=== PATIENT | female | born 1950 | race Caucasian/White ===

== ENCOUNTER 2017-12-05 19:12 | Emergency (ER) | payer MEDICARE, OTHER ==
[~2017-12-05] VITALS: Ht 172.7 cm; Wt 86.8 kg
[2017-12-05] MEDS ORDERED: ULTRAM50 M1 PO (20:34)
[2017-12-05] MEDS ORDERED: NAPROSYN500 MG PO (20:34)
[2017-12-05 21:00] VITALS: BP 134/60
== END 2017-12-05 21:06 | disposition home or self-care (01) ==
LOC: ED 19:12
DX: S86.811A Strain of other muscle(s) and tendon(s) at lower leg level, right leg, initial encounter (principal); E03.9 Hypothyroidism, unspecified; E05.00 Thyrotoxicosis with diffuse goiter without thyrotoxic crisis or storm; E78.00 Pure hypercholesterolemia, unspecified; X50.0XXA Overexertion from strenuous movement or load, initial encounter; Y93.89 Activity, other specified; Y92.009 Unspecified place in unspecified non-institutional (private) residence as the place of occurrence of the external cause